=== PATIENT | female | born 1945 | race Caucasian/White ===

== ENCOUNTER → 2018-07-22 | Day surgery (SDC) | payer MEDICARE ==
[2018-07-22 12:43] LABS: Hemoglobin 10.7 g/dL (12.0-16.0); Mean Corpuscular HGB CONC 30.6 g/dL (32.0-36.0); Mean Corpuscular Hemoglobin 28.3 pg (27.0-31.0); Mean Corpuscular Volume 92.7 fL (78.0-98.0); Mean Platelet Volume 7.9 fL (7.4-10.4); Platelet Count 121 thou/uL (130-400); RBC Distribution Width 14.3 % (11.5-14.5); Red Blood Cell (RBC) Count 3.79 mill/uL (4.20-5.40); White Blood Cell (WBC) Count 2.8 thou/uL (4.8-10.8)
[2018-07-22 12:55] LABS: Anion Gap 12 mmol/L (10-20); BUN (Urea Nitrogen) 11 mg/dL (9.8-20.1); Calc. Creatinine Clearance 0 mL/min (70-130); Calcium 8.3 mg/dL (7.8-10.44); Carbon Dioxide 27 mmol/L (23-31); Chloride 108 mmol/L (98-107); Estimated GFR-MDRD Greater than 90; Glucose 117 mg/dL (83-110); Potassium 3.2 mmol/L (3.5-5.1); Sodium 144 mmol/L (136-145)
[2018-07-22 12:57] LABS: Band 9 % (5-11); Eosinophils 7 % (0-10); Lymphocytes 32 % (21-51); MDiff Complete? YES; Monocytes 4 % (0-10); Neutrophil 48 % (42-75); Nucleated RBC 2 % (0); Platelet Morphology Comment Appears Decreased; Polychromasia SLIGHT = 2-3 cells (100X) (0-2/hpf)
--- NOTE | 2018-07-22 13:31 | ULT ---
EXAM: US Abdomen Limited PROVIDED CLINICAL HISTORY: Bile duct injury many years ago. Change catheter removed approximately 6 weeks ago. Patient with elevated bilirubin. Evaluate for bili yogesh ductal dilatation. COMPARISON: None available. FINDINGS: The liver is small in size. Liver is slightly heterogeneous, but no focal mass is seen. The visualize d extrahepatic common duct measures 0.5 cm in diameter. There is no evidence of intrahepatic biliary ductal dilatation. The main portal vein is mildly dilated measuring 2 cm in diameter. Doppler evaluation of the main portal vein does demonstrate normal directional flow in the portal vein. No free fluid is seen in the right upper quadrant. Visualized IVC has a normal sonographic appearance . IMPRESSION: 1. No evidence of intrahepatic or extrahepatic biliary ductal dilatation. 2. Dilatation of the main portal vein, but normal directional flow is seen in the main portal vein. I maging of the spleen was not performed.
== END ==
LOC: SDC 11:13
PROVIDERS: ATTEND Internal Medicine Gastroenterology
DX: K83.8 Other specified diseases of biliary tract (principal); F41.9 Anxiety disorder, unspecified; K74.60 Unspecified cirrhosis of liver; F32.9 Major depressive disorder, single episode, unspecified; E11.9 Type 2 diabetes mellitus without complications; K21.9 Gastro-esophageal reflux disease without esophagitis; R60.0 Localized edema; Z88.1 Allergy status to other antibiotic agents; Z88.8 Allergy status to other drugs, medicaments and biological substances; Z86.010 Personal history of colon polyps; Z79.4 Long term (current) use of insulin; Z79.899 Other long term (current) drug therapy
CPT/HCPCS: 76705; 80048; 85025; 93005; 93010

== ENCOUNTER 2019-11-05 14:08 | Outpatient (CLI) | payer MEDICARE ==
[2019-11-05 15:31] LABS: Estimated GFR-MDRD - POC Greater than 90
--- NOTE | 2019-11-05 17:09 | MRI ---
EXAM: MRI of the abdomen without and with contrast COMPARISON: Ultrasound of the abdomen 07/22/2018 HISTORY: Abnormal LFTs. History of common bile duct transection and cirrhosis. TECHNIQUE: Multiplanar multi sequence MR images were taken of the abdomen without and with IV contras t. FINDINGS: Liver: There is a nonspecific 3.5 cm focal area in the posterior aspect of the right lobe of the live r of focal intrahepatic biliary dilatation. There is isointense enhancement of the liver in this region compared to the rest of the liver. The liver is cirrhotic in morphology. No other liver lesion s are seen. No abnormal enhancement. Gallbladder: Absent Common bile duct: Normal caliber without filling defects Adrenal glands: Unremarkable. Kidneys: No hydronephrosis or focal renal lesions. No abnormal areas of enhancement. Spleen: Enlarged measuring 15 cm. Pancreas: Unremarkable. No abnormal enhancement. Retroperitoneum: No enlarged lymph nodes Bones: No marrow signal abnormality. IMPRESSION: 1. Cirrhotic liver with sequelae of portal hypertension 2. Nonspecific focal area of intrahepatic biliary dilatation in the right lobe of the liver. The rest of the biliary tree shows no evidence of dilation.
== END 2019-11-05 14:09 | disposition home or self-care (01) ==
LOC: SCSMRI 14:08
PROVIDERS: ATTEND Internal Medicine Gastroenterology
DX: K74.60 Unspecified cirrhosis of liver (principal); K83.09 Other cholangitis; M54.9 Dorsalgia, unspecified; G89.29 Other chronic pain; K63.5 Polyp of colon; S36.13XA Injury of bile duct, initial encounter; E11.9 Type 2 diabetes mellitus without complications; K83.8 Other specified diseases of biliary tract; K80.80 Other cholelithiasis without obstruction; K21.9 Gastro-esophageal reflux disease without esophagitis; J30.1 Allergic rhinitis due to pollen; E87.6 Hypokalemia; K76.6 Portal hypertension; G93.40 Encephalopathy, unspecified; A41.9 Sepsis, unspecified organism; J18.9 Pneumonia, unspecified organism; G40.909 Epilepsy, unspecified, not intractable, without status epilepticus; F41.9 Anxiety disorder, unspecified; F32.9 Major depressive disorder, single episode, unspecified; F43.0 Acute stress reaction; F34.1 Dysthymic disorder; R10.11 Right upper quadrant pain; R60.9 Edema, unspecified; R74.9 Abnormal serum enzyme level, unspecified; R11.2 Nausea with vomiting, unspecified; Z92.89 Personal history of other medical treatment
CPT/HCPCS: 74183; 82565